=== PATIENT | female | born 1965 | race Hispanic/Latino ===

== ENCOUNTER 2021-08-03 07:14 | Emergency (ER) | payer OTHER ==
[2021-08-03 07:19] VITALS: BP 143/78
--- NOTE | 2021-08-03 08:10 | Emergency Department Report ---
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 SHE COMES INTO THE ER VIA POV BUT "CAN NOT WALK." SHE SAYS SHE ROLLED ANKLES AND THEN FELL BACKWARDS. NO OTHER INJURY NEUROVASC INTACT ON EXAM IN TRIAGE MD Complaint: ankle injury -: Sudden Injury: Ankle: Right, Left Type of Injury: blunt, inversion Place: work Severity: severe Worsens With: weight bearing Associated Symptoms: snap/pop sensation, swelling - Related Data Previous Rx's Medication Instructions Recorded Last Taken Type traMADoL [Ultram] 50 mg PO Q6HR PRN #12 tablet 08/03/21 Unknown Rx Allergies Allergy/AdvReac Type Severity Reaction Status Date / Time No Known Allergies Allergy Unverified 08/03/21 07:19 ED Review of Systems ROS: Stated complaint: BILATERAL ANKLE PAIN Other details as noted in HPI Comment: All other systems reviewed and negative ED Past Medical Hx - Past Medical History Previous Medical History?: No - Surgical History Past Surgical History?: No - Family History Family history: no significant - Social History Smoking Status: Never Smoker Substance Use Type: None - Medications Home Medications: Home Medications Medication Instructions Recorded Confirmed Last Taken Type traMADoL [Ultram] 50 mg PO Q6HR PRN #12 tablet 08/03/21 Unknown Rx ED Physical Exam - General Limitations: No Limitations General appearance: alert, in no apparent distress - Head Head exam: Present: atraumatic, normocephalic - Eye Eye exam: Present: normal appearance - ENT ENT exam: Present: mucous membranes moist - Neck Neck exam: Present: normal inspection - Respiratory Respiratory exam: Present: normal lung sounds bilaterally. Absent: respiratory distress - Cardiovascular Cardiovascular Exam: Present: regular rate, normal rhythm. Absent: systolic murmur, diastolic murmur, rubs, gallop - GI/Abdominal GI/Abdominal exam: Present: soft, normal bowel sounds - Extremities Exam Extremities exam: Present: normal inspection - Expanded Lower Extremity Exam Right Knee exam: Present: normal inspection Lower Leg exam: Present: normal inspection Ankle exam: Present: swelling Foot/Toe exam: Present: swelling Left Lower Leg exam: Present: normal inspection Ankle exam: Present: tenderness, swelling Foot/Toe exam: Present: tenderness, swelling Neuro vascular tendon exam: Present: no vascular compromise - Back Exam Back exam: Present: normal inspection - Neurological Exam Neurological exam: Present: alert, oriented X3 - Psychiatric Psychiatric exam: Present: normal affect, normal mood - Skin Skin exam: Present: warm, dry, intact, normal color. Absent: rash ED Course Vital Signs 08/03/21 08/03/21 07:18 09:10 Temperature 98.2 F Pulse Rate 82 Respiratory 16 16 Rate Blood Pressure 143/78 [Right] O2 Sat by Pulse 99 Oximetry ED Lower Extremity MDM - Radiology Data Radiology results: report reviewed, image reviewed FX - Medical Decision Making XRAYS NOTED STAFFED WITH ORTHO SPLINT RECS APPRECIATED WALKING BOOT TO ALVUSED ANKLE AO SPLINT TO FX ANKLE NEUROVASC INTACT BEFORE AND AFTER SPLINTS PLACED MEDICATED FOR PAIN Vital Signs 08/03/21 08/03/21 07:18 09:10 Temperature 98.2 F Pulse Rate 82 Respiratory 16 16 Rate Blood Pressure 143/78 [Right] O2 Sat by Pulse 99 Oximetry PT EDUCATED ON DC PLAN OF CARE INCLUDING MOBILITY, PAIN CONTROL, WORK COMP, FOLLOW UP. SHE VERBALIZES AN UNDERSTANDING OF PLAN OF CARE. PT DC WITH CRUTCHES AND WALKER; SHE RX FOR WHEELCHAIR. - Differential Diagnosis RO FX Critical care attestation.: If time is entered above; I have spent that time in minutes in the direct care of this critically ill patient, excluding procedure time. ED Disposition Clinical Impression: Fall, Obesity Bilateral ankle fractures Qualifiers: Encounter type: initial encounter Fracture type: closed Qualified Code(s): S82.891A - Other fracture of right lower leg, initial encounter for closed fracture; S82.892A - Other fracture of left lower leg, initial encounter for closed fracture Disposition: HOME / SELF CARE / HOMELESS Is pt being admited?: No Does the pt Need Aspirin: No Condition: Stable Instructions: Cast or Splint Care, Adult Additional Instructions: MOTRIN OR TYLENOL MAY BE USED FOR MILD PAIN ULTRAM FOR SEVERE PAIN CRUTCHES/WALKER KEEP SPLINTS IN PLACE FOLLOW UP WITH ORTHO NEXT WEEK REFERRAL BELOW Prescriptions: traMADoL [Ultram] 50 mg PO Q6HR PRN #12 tablet PRN Reason: Pain Referrals: LAUREN VARGAS MD [Staff Physician] - 3-5 Days Time of Disposition: 10:22
--- NOTE | 2021-08-03 08:53 | XRay Report ---
XR ankle BILAT 3+V INDICATION: PAIN SP FALL. COMPARISON: No relevant prior imaging study available. FINDINGS: Left ankle: There is a minimally displaced oblique fracture through the distal fibular diaphysis a fe w centimeters above the level of the ankle mortise. No additional fractures are seen. There is mild a nkle mortise widening medially. Ossific density adjacent to the tip of the medial malleolus may be du e to fracture or heterotopic ossification. There is moderate soft tissue swelling greatest anteriorly . Right ankle: There is a small avulsion type fracture at the distal tibia above the lateral malleolus. No additional fractures are seen. Extensive soft tissue swelling is noted greatest anterolaterally. IMPRESSION: 1. Bilateral ankle fractures as above. Signer Name: Ilya Harris MD Signed: 08/03/2021 8:48 AM Workstation Name: [id number]
[2021-08-03] MEDS ORDERED: HYDROcodone/ACETAMINOPHEN 10-325MG TAB PO ONE ×2 (09:04→13:20)
== END 2021-08-03 13:30 | disposition home or self-care (01) ==
LOC: ED 07:14
DX: S82.892A Other fracture of left lower leg, initial encounter for closed fracture (principal); S82.891A Other fracture of right lower leg, initial encounter for closed fracture; W01.0XXA Fall on same level from slipping, tripping and stumbling without subsequent striking against object, initial encounter; Y93.89 Activity, other specified; Y92.89 Other specified places as the place of occurrence of the external cause; Y99.8 Other external cause status